=== PATIENT | male | born 1950 | race Caucasian/White ===

== ENCOUNTER 2023-09-15 22:16 | Emergency (ER) | payer OTHER ==
[~2023-09-15] VITALS: Ht 175.3 cm; Wt 95.0 kg
[2023-09-15 22:25] VITALS: O2SAT 96
[2023-09-15 23:04] LABS: DIFFERENTIAL COMMENT 1; HEMATOCRIT. 34.9 % (42.0-52.0); HEMOGLOBIN. 12.2 g/dL (14.0-18.0); MEAN CORPUSCULAR HEMOGLOBIN 33.7 pg (28.0-32.0); MEAN CORPUSCULAR HGB CONC 34.8 g/dL (31.0-37.0); MEAN CORPUSCULAR VOLUME 96.6 fL (80.0-94.0); MEAN PLATELET VOLUME 6.5 fl (7.4-10.4); PLATELET 284 x1000/uL (130-400); RED BLOOD CELL COUNT 3.61 mill/uL (4.7-6.1); RED CELL DISTRIBUTION WIDTH 13.4 % (11.6-14.6); WHITE BLOOD COUNT 7.6 x1000/uL (4.5-11.0)
[2023-09-15] MEDS: SODIUM CHLORIDE 0.9% 1,000 ML IV ONE (23:09)
[2023-09-15 23:10] LABS: CARBON DIOXIDE 24 mEq/L (21-32); CHLORIDE 97 mEq/L (98-107); POTASSIUM 4.5 mEq/L (3.5-5.1); SODIUM 128 mEq/L (136-145)
[2023-09-15 23:11] LABS: CALCIUM 9.5 mg/dL (8.7-10.4)
[2023-09-15 23:15] LABS: GLUCOSE 143 mg/dL (70-105); PLATELET ESTIMATE NORMAL
[2023-09-15 23:16] LABS: UREA NITROGEN BLOOD 21 mg/dL (9-23)
[2023-09-15 23:17] LABS: ALANINE AMINOTRANSFERASE 39 IU/L (10-49); ALBUMIN 4.4 g/dL (3.2-4.8); ASPARTATE AMINOTRANSFERASE 32 IU/L (<34); BILIRUBIN DIRECT 0.2 mg/dL (<=3.0)
[2023-09-15 23:18] LABS: BILIRUBIN TOTAL 0.7 mg/dL (0.1-1.0); ETHANOL BLOOD < 10 mg/dL (<10); PROTEIN TOTAL 7.1 g/dL (6.0-8.3); TROPONIN I HIGH SENSITIVITY < 4 ng/L (3.0-53)
[2023-09-15 23:22] LABS: CREATININE 1.1 mg/dL (0.6-1.3)
[2023-09-16 01:05] VITALS: BP 126/75; PULSE 74; RESP 12; TEMP 98
== END 2023-09-16 01:06 | disposition home or self-care (01) ==
LOC: ER 22:16
DX: R55 Syncope and collapse (principal); F19.90 Other psychoactive substance use, unspecified, uncomplicated; J45.909 Unspecified asthma, uncomplicated; E11.9 Type 2 diabetes mellitus without complications; I10 Essential (primary) hypertension
CPT/HCPCS: 80076; 80048; 80320; 83880; 83690; 85025; 84484; 36415; 71045; 96360; 99284; J7030; G0480